=== PATIENT | male | born 1975 | race Caucasian/White ===

== ENCOUNTER 2020-02-25 11:50 | Emergency (ER) | payer OTHER ==
[2020-02-25] MEDS ORDERED: APRESOLINE 20 MG/ML INJ IV ONE ×3 (12:12→12:43)
[2020-02-25] MEDS ORDERED: Sodium Chloride 0.9% 1000 ML 1,000 ML IV SCH (12:15)
[2020-02-25] MEDS ORDERED: Ativan 2 MG/1 ML VIAL IV ONE (12:17)
[2020-02-25] MEDS ORDERED: APRESOLINE 20 MG/ML INJ ONE (12:20)
[2020-02-25] MEDS ORDERED: Sodium Chloride 0.9% 1000 ML 1,000 ML ONE (12:21)
[2020-02-25] MEDS ORDERED: Ativan 2 MG/1 ML VIAL ONE (12:24)
--- NOTE | 2020-02-25 12:30 | ERPHSYRPT ---
- History of Present Illness Time Seen by Provider: 02/25/20 12:10 Source: patient Exam Limitations: no limitations Patient Subjective Stated Complaint: Headache Triage Nursing Assessment: Patient ambulated back to ED and transferred to bed per self. Patient A+O X3. Patient's skin flushed, warm and dry. Patient complains of left sided headache for one week constant throbbing with intermittent sharp pain 2/10. Patient complains of blurred vision out of his left eye. Patient's pupils PERRL. Patient was seen at [facility] and was told to go to ED for his symptoms. Patient's blood pressure at clinic was 240/120, 220/120, 200/120. Patient states he was tested for COVID last Sunday and got negative results. Physician History: This is a 44-year-old white male with no medical history, no medications and no known drug allergies and presents with approximately 1 week history of left- sided headache and intermittent blurred vision on the left side. Patient was seen at an outpatient clinic. Patient blood pressure was very high and patient was sent to the emergency department for evaluation and management. The patient denies chest pain he denies shortness of breath. He has no flulike symptoms. Patient arrives to the emergency department with a systolic blood pressure of over 225. Patient is extremely anxious. Timing/Duration: week(s) (1) Severity: moderate Associated Symptoms: headaches, other (Left eye blurred vision intermittent) Allergies/Adverse Reactions: No Known Drug Allergies Allergy (Unverified 02/25/20 12:01) Hx Influenza Vaccination/Date Given: No Hx Pneumococcal Vaccination/Date Given: No Immunizations Up to Date: Yes Travel Risk - International Travel Have you traveled outside of the country in past 3 weeks: No - Coronavirus Screening Symptoms: Headaches/Body Aches/Fatigue Close contact with a COVID-19 positive Pt in past 14-21 Days: No - Review of Systems Constitutional: No Symptoms Eyes: Vision Changes (Left eye intermittent for 1 week) Ears, Nose, & Throat: No Symptoms Respiratory: No Symptoms Cardiac: No Symptoms Abdominal/Gastrointestinal: No Symptoms Genitourinary Symptoms: No Symptoms Musculoskeletal: No Symptoms Skin: No Symptoms Neurological: No Symptoms Psychological: No Symptoms Endocrine: No Symptoms Hematologic/Lymphatic: No Symptoms Immunological/Allergic: No Symptoms All Other Systems: Reviewed and Negative - Past Medical History Pertinent Past Medical History: No Neurological History: No Pertinent History ENT History: No Pertinent History Cardiac History: No Pertinent History Respiratory History: No Pertinent History Endocrine Medical History: No Pertinent History Musculoskeletal History: No Pertinent History GI Medical History: No Pertinent History History: No Pertinent History Psycho-Social History: No Pertinent History Male Reproductive Disorders: No Pertinent History - Past Surgical History Past Surgical History: Yes Neuro Surgical History: No Pertinent History Cardiac: No Pertinent History Respiratory: No Pertinent History Gastrointestinal: Hernia Repair Genitourinary: No Pertinent History Musculoskeletal: No Pertinent History, Orthopedic Surgery Male Surgical History: No Pertinent History Other Surgical History: Hernia repair at 13 years old. Left hand sugery - Social History Smoking Status: Never smoker Exposure to second hand smoke: No Drug Use: none Patient Lives Alone: No - Nursing Vital Signs Nursing Vital Signs: Initial Vital Signs Temperature 99.1 F 02/25/20 12:02 Pulse Rate 103 H 02/25/20 12:02 Respiratory Rate 20 02/25/20 12:02 Blood Pressure 222/131 02/25/20 12:02 O2 Sat by Pulse Oximetry 97 02/25/20 12:02 Pain Scale Pain Intensity 0 - Physical Exam General Appearance: mild distress, alert, anxiety Eye Exam: PERRL/EOMI, eyes nml inspection Ears, Nose, Throat Exam: normal ENT inspection, moist mucous membranes Neck Exam: normal inspection, non-tender, supple, full range of motion Respiratory Exam: normal breath sounds, lungs clear, airway intact, No chest tenderness, No respiratory distress Cardiovascular Exam: regular rate/rhythm, normal heart sounds, normal peripheral pulses Gastrointestinal/Abdomen Exam: soft, normal bowel sounds, No tenderness Rectal Exam: not done Back Exam: normal inspection, normal range of motion, No CVA tenderness, No vertebral tenderness Extremity Exam: normal inspection, normal range of motion, pelvis stable Neurologic Exam: alert, oriented x 3, cooperative, document processing specialist II-XII nml as tested, nor mal mood/affect, nml cerebellar function, nml station & gait, sensation nml Skin Exam: normal color, warm, dry Lymphatic Exam: No adenopathy SpO2 Interpretation: normal SpO2: 95 O2 Delivery: Room Air - Course Nursing assessment & vital signs reviewed: Yes EKG Interpreted by Me: RATE (97), Sinus Rhythm, NORMAL AXIS, NORMAL INTERVALS, NORMAL QRS, Other (No comparison EKG. No acute ischemic changes on this EKG) Ordered Tests: Active Orders 24 hr Category Date Time Status Mailing Machine Operator STAT Care 02/25/20 12:11 Active Clean Catch Urine Specimen STAT Care 02/25/20 12:11 Active EKG-ER Only STAT Care 02/25/20 12:11 Active IV Insertion STAT Care 02/25/20 12:11 Active Pulse Oximetry (ED) STAT Care 02/25/20 12:11 Active HEAD WITHOUT CONTRAST [CT] Stat Exams 02/25/20 12:14 Completed CBC W DIFF Stat Lab 02/25/20 12:11 Completed CMP Stat Lab 02/25/20 12:11 Completed CULTURE,URINE Stat Lab 02/25/20 12:00 Received MAGNESIUM Stat Lab 02/25/20 12:11 Completed TROPONIN Q3H Lab 02/25/20 12:30 Completed TROPONIN Q3H Lab 02/25/20 15:30 Ordered TROPONIN Q3H Lab 02/25/20 18:30 Ordered TROPONIN Q3H Lab 02/25/20 21:30 Ordered TROPONIN Q3H Lab 02/26/20 00:30 Ordered UA W/RFX UR CULTURE Stat Lab 02/25/20 12:00 Completed Urine Triage Profile Stat Lab 02/25/20 12:15 Completed Medication Summary Generic Name Dose Route Start Last Admin Trade Name Freq PRN Reason Stop Dose Admin Sodium Chloride 1,000 mls @ 50 mls/hr 02/25/20 12:15 02/25/20 12:28 Sodium Chloride 0.9% 1000 Ml IV 03/26/20 12:14 50 mls/hr .Q20H YANIRA Administration Discontinued Medications Generic Name Dose Route Start Last Admin Trade Name Freq PRN Reason Stop Dose Admin Hydralazine HCl 20 mg 02/25/20 12:12 02/25/20 12:38 Apresoline 20 Mg/Ml Inj IV 02/25/20 12:13 Not Given STAT ONE Hydralazine HCl 10 mg 02/25/20 12:17 02/25/20 12:28 Apresoline 20 Mg/Ml Inj IV 02/25/20 12:18 10 mg STAT ONE Administration Hydralazine HCl Confirm 02/25/20 12:20 Apresoline 20 Mg/Ml Inj Administered 02/25/20 12:21 Dose 20 mg .ROUTE .STK-MED ONE Hydralazine HCl 10 mg 02/25/20 12:43 02/25/20 12:46 Apresoline 20 Mg/Ml Inj IV 02/25/20 12:44 10 mg STAT ONE Administration Lorazepam 1 mg 02/25/20 12:17 02/25/20 12:27 Ativan 2 Mg/1 Ml Vial IV 02/25/20 12:18 1 mg STAT ONE Administration Lorazepam Confirm 02/25/20 12:24 Ativan 2 Mg/1 Ml Vial Administered 02/25/20 12:25 Dose 2 mg .ROUTE .STK-MED ONE Metoprolol Tartrate 5 mg 02/25/20 13:16 02/25/20 13:28 Lopressor 5 Mg/5 Ml Injection IV 02/25/20 13:17 5 mg STAT ONE Administration Metoprolol Tartrate Confirm 02/25/20 13:27 Lopressor 5 Mg/5 Ml Injection Administered 02/25/20 13:28 Dose 5 mg IV .STK-MED ONE Metoprolol Tartrate 5 mg 02/25/20 13:51 Lopressor 5 Mg/5 Ml Injection IV 02/25/20 13:52 STAT ONE Lab/Rad Data: Laboratory Result Diagrams 02/25/20 12:11 02/25/20 12:11 Laboratory Results 02/25/20 02/25/20 02/25/20 Range/Units 12:30 12:15 12:11 WBC (4.0-10.5) K/mm3 RBC (4.1-5.6) M/mm3 Hgb (12.5-18.0) gm/dl Hct (42-50) % MCV (78-100) fl MCH (26-32) pg MCHC (32-36) g/dl RDW (11.5-14.0) % Plt Count (150-450) K/mm3 MPV (7.5-11.0) fl Gran % (36.0-66.0) % Eos # (Auto) (0-0.5) Absolute Lymphs (auto) (1.0-4.6) Absolute Monos (auto) (0.0-1.3) Lymphocytes % (24.0-44.0) % Monocytes % (0.0-12.0) % Eosinophils % (0.00-5.0) % Basophils % (0.0-0.4) % Absolute Granulocytes (1.4-6.9) Basophils # (0-0.4) Sodium 137 (137-145) mmol/L Potassium 4.8 (3.5-5.1) mmol/L Chloride 104 (98-107) mmol/L Carbon Dioxide 24 (22-30) mmol/L Anion Gap 14.0 (5-15) MEQ/L BUN 13 (9-20) mg/dL Creatinine 1.01 (0.66-1.25) mg/dL Estimated GFR > 60.0 ML/MIN Glucose 120 H (74-106) mg/dL Calcium 9.8 (8.4-10.2) mg/dL Magnesium 2.2 (1.6-2.3) mg/dL Total Bilirubin 1.30 (0.2-1.3) mg/dL AST 53 (17-59) U/L ALT 66 H (0-50) U/L Alkaline Phosphatase 104 (38-126) U/L Troponin I < 0.012 (0.000-0.034) ng/mL Serum Total Protein 8.6 H (6.3-8.2) g/dL Albumin 5.1 H (3.5-5.0) g/dL Urine Color (YELLOW) Urine Appearance (CLEAR) Urine pH (5-6) Ur Specific [place] (1.005-1.025) Urine Protein (Negative) Urine Ketones (NEGATIVE) Urine Blood (0-5) Macho/ul Urine Nitrite (NEGATIVE) Urine Bilirubin (NEGATIVE) Urine Urobilinogen (0-1) mg/dL Ur Leukocyte Esterase (NEGATIVE) Urine WBC (Auto) (0-5) /HPF Urine RBC (Auto) (0-2) /HPF U Hyaline Cast (Auto) (0-2) /LPF U Epithel Cells (Auto) (FEW) /HPF Urine Bacteria (Auto) (NEGATIVE) /HPF Granular Casts (Auto) (NEGATIVE) /LPF Urine Mucus (Auto) (NEGATIVE) /HPF Urine Sperm (Auto) (NEGATIVE) /HPF Urine Culture Reflexed (NO) Urine Glucose (NEGATIVE) mg/dL Urine Opiates Level NEGATIVE (NEGATIVE) Ur Methadone NEGATIVE (NEGATIVE) Urine Barbiturates NEGATIVE (NEGATIVE) Ur Phencyclidine (PCP) NEGATIVE (NEGATIVE) Urine Amphetamine NEGATIVE (NEGATIVE) U Benzodiazepine Level NEGATIVE (NEGATIVE) Urine Cocaine NEGATIVE (NEGATIVE) Urine Marijuana (THC) NEGATIVE (NEGATIVE) 02/25/20 02/25/20 Range/Units 12:11 12:00 WBC 8.8 (4.0-10.5) K/mm3 RBC 4.84 (4.1-5.6) M/mm3 Hgb 16.5 (12.5-18.0) gm/dl Hct 47.9 (42-50) % MCV 99.0 (78-100) fl MCH 34.1 H (26-32) pg MCHC 34.4 (32-36) g/dl RDW 12.1 (11.5-14.0) % Plt Count 305 (150-450) K/mm3 MPV 9.0 (7.5-11.0) fl Gran % 79.0 H (36.0-66.0) % Eos # (Auto) 0.07 (0-0.5) Absolute Lymphs (auto) 1.21 (1.0-4.6) Absolute Monos (auto) 0.54 (0.0-1.3) Lymphocytes % 13.8 L (24.0-44.0) % Monocytes % 6.2 (0.0-12.0) % Eosinophils % 0.8 (0.00-5.0) % Basophils % 0.2 (0.0-0.4) % Absolute Granulocytes 6.92 H (1.4-6.9) Basophils # 0.02 (0-0.4) Sodium (137-145) mmol/L Potassium (3.5-5.1) mmol/L Chloride (98-107) mmol/L Carbon Dioxide (22-30) mmol/L Anion Gap (5-15) MEQ/L BUN (9-20) mg/dL Creatinine (0.66-1.25) mg/dL Estimated GFR ML/MIN Glucose (74-106) mg/dL Calcium (8.4-10.2) mg/dL Magnesium (1.6-2.3) mg/dL Total Bilirubin (0.2-1.3) mg/dL AST (17-59) U/L ALT (0-50) U/L Alkaline Phosphatase (38-126) U/L Troponin I (0.000-0.034) ng/mL Serum Total Protein (6.3-8.2) g/dL Albumin (3.5-5.0) g/dL Urine Color YELLOW (YELLOW) Urine Appearance CLEAR (CLEAR) Urine pH 6.0 (5-6) Ur Specific [place] 1.012 (1.005-1.025) Urine Protein 30 (Negative) Urine Ketones NEGATIVE (NEGATIVE) Urine Blood SMALL (0-5) [place]ul Urine Nitrite NEGATIVE (NEGATIVE) Urine Bilirubin NEGATIVE (NEGATIVE) Urine Urobilinogen NEGATIVE (0-1) mg/dL Ur Leukocyte Esterase NEGATIVE (NEGATIVE) Urine WBC (Auto) 0-2 (0-5) /HPF Urine RBC (Auto) 3-5 (0-2) /HPF U Hyaline Cast (Auto) 0-2 (0-2) /LPF U Epithel Cells (Auto) NONE (FEW) /HPF Urine Bacteria (Auto) FEW (NEGATIVE) /HPF Granular Casts (Auto) 5-10 (NEGATIVE) /LPF Urine Mucus (Auto) SLIGHT (NEGATIVE) /HPF Urine Sperm (Auto) PRESENT (NEGATIVE) /HPF Urine Culture Reflexed YES (NO) Urine Glucose NEGATIVE (NEGATIVE) mg/dL Urine Opiates Level (NEGATIVE) Ur Methadone (NEGATIVE) Urine Barbiturates (NEGATIVE) Ur Phencyclidine (PCP) (NEGATIVE) Urine Amphetamine (NEGATIVE) U Benzodiazepine Level (NEGATIVE) Urine Cocaine (NEGATIVE) Urine Marijuana (THC) (NEGATIVE) - Progress Progress: improved, re-examined Progress Note: 02/25/20 13:53 CAT scan of the head reveals no acute intracranial abnormality. Medical decision making: This patient has hypertensive crisis. His symptoms of headache have resolved. His most recent systolic blood pressure is 182. I recommended that the patient be admitted to the hospital or transferred to a facility. Patient refuses to be admitted or transferred for further management. Patient states he is feeling better and wants to go home. I reviewed the benefits of being admitted into a facility (this 1 or transfer to another facility) and the risk of going home without monitoring over the next 24 to 48 hours including worsening symptoms, stroke and . Patient understands the above and desires to go home. He will sign an AMA form. I will discharge him with a prescription of metoprolol. Counseled pt/family regarding: lab results, diagnosis, need for follow-up, rad results - Departure Departure Disposition: AMA Clinical Impression: Hypertensive crisis Condition: Fair Critical Care Time: Yes Critical Care Time(excluding separately billable procedures): Critical 30-74 mins Referrals: KERRIE ARSHAD [ACTIVE STAFF] - Additional Instructions: Call your primary care doctor today to make arrangements for further management. Return to the emergency department if your symptoms worsen. Go to your pharmacy and fill your prescription immediately. While at the pharmacy purchase a blood pressure monitoring cuff. Keep a log of your blood pressure 3 times a day (morning noon and night). Take this log to your primary care doctor appo intment. Prescriptions: Metoprolol Tartrate 50 mg [Lopressor 50 MG] 50 mg PO BID #20 tablet
[2020-02-25 12:35] LABS: Absolute Neutrophil Ct (ANC) 6.92 (1.4-6.9); BASOPHIL % 0.2 % (0.0-0.4); Basophil (Absolute #) 0.02 (0-0.4); Eosinophil % 0.8 % (0.00-5.0); Eosinophil (Absolute #) 0.07 (0-0.5); Hematocrit 47.9 % (42-50); Hemoglobin 16.5 gm/dl (12.5-18.0); Lymphocyte (Absolute #) 1.21 (1.0-4.6); Lymphocytes % 13.8 % (24.0-44.0); Mean Corpuscular Hemoglobin 34.1 pg (26-32); Mean Corpuscular Hgb Concent. 34.4 g/dl (32-36); Monocyte (Absolute #) 0.54 (0.0-1.3); Monocytes % 6.2 % (0.0-12.0); Platelet Count 305 K/mm3 (150-450); Red Blood Count 4.84 M/mm3 (4.1-5.6); Red Cell Distribution Width 12.1 % (11.5-14.0); White Blood Count 8.8 K/mm3 (4.0-10.5)
[2020-02-25 12:48] LABS: ALBUMIN 5.1 g/dL (3.5-5.0); ALKALINE PHOSPHATASE 104 U/L (38-126); BLOOD UREA NITROGEN 13 mg/dL (9-20); CHLORIDE 104 mmol/L (98-107); Calcium 9.8 mg/dL (8.4-10.2); Carbon Dioxide 24 mmol/L (22-30); Creatinine 1 1.01 mg/dL (0.66-1.25); Glucose 120 mg/dL (74-106); MAGNESIUM 2.2 mg/dL (1.6-2.3); Potassium 4.8 mmol/L (3.5-5.1); SGOT/AST 53 U/L (17-59); SGPT/ALT 66 U/L (0-50); SODIUM 137 mmol/L (137-145); Total Protein 8.6 g/dL (6.3-8.2)
[2020-02-25 12:58] LABS: Appearance CLEAR (CLEAR); Bacteria FEW /HPF (NEGATIVE); Bilirubin NEGATIVE (NEGATIVE); Blood SMALL Ery/ul (0-5); Glucose NEGATIVE (NEGATIVE); Hyaline Casts 0-2 /LPF (0-2); Ketones NEGATIVE (NEGATIVE); Leukocyte Esterase NEGATIVE (NEGATIVE); Mucus SLIGHT /HPF (NEGATIVE); Nitrite NEGATIVE (NEGATIVE); Protein,Urine Dip 30 (Negative); Specific Gravity 1.012 (1.005-1.025); Sperm PRESENT /HPF (NEGATIVE); Urobilinogen NEGATIVE mg/dL (0-1); WBC 0-2 /HPF (0-5)
[2020-02-25 13:07] LABS: Amphetamine,Urine NEGATIVE (NEGATIVE); Barbiturate,Urine NEGATIVE (NEGATIVE); Benzodiazepine,Urine NEGATIVE (NEGATIVE); Cocaine,Urine NEGATIVE (NEGATIVE); Methadone,Urine NEGATIVE (NEGATIVE); Opiate,Urine NEGATIVE (NEGATIVE); PCP,Urine NEGATIVE (NEGATIVE); THC,Urine NEGATIVE (NEGATIVE)
[2020-02-25] MEDS ORDERED: LOPRESSOR 5 MG/5 ML INJECTION IV ONE ×4 (13:16→13:59)
--- NOTE | 2020-02-25 13:20 | XRAY ---
Indication: Headache 1 week. High blood pressure. Multiple contiguous axial images obtained through the head without contrast. Comparison: None Normal appearing brain parenchyma, ventricles, and bony calvarium. Visualized paranasal sinuses and mastoid air cells are clear. Impression: Normal CT head without contrast exam.
[2020-02-25 14:22] VITALS: BP 196/102; PULSE 96; O2SAT 99
== END 2020-02-25 14:30 | disposition left against medical advice (07) ==
LOC: ED 11:50
DX: I16.9 Hypertensive crisis, unspecified (principal)
CPT/HCPCS: 36000; 36415; 70450; 80053; 80307; 81001; 83735; 84484; 85025; 87086; 93005; 93041; 94760; 96360; 96374; 96375; 96376; 99285; 99291; J0360; J2060

== ENCOUNTER 2020-05-08 22:22 | Emergency (ER) | payer OTHER ==
[2020-05-08 22:52] VITALS: O2SAT 95
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
[2020-05-08 23:09] VITALS: BP 140/86; PULSE 76
== END 2020-05-08 23:00 | disposition home or self-care (01) ==
LOC: ED 22:22
DX: Z04.1 Encounter for examination and observation following transport accident (principal); F10.129 Alcohol abuse with intoxication, unspecified; Z02.89 Encounter for other administrative examinations
CPT/HCPCS: 36415; 80307; 99284; G0480

== ENCOUNTER 2024-10-27 17:54 | Emergency (ER) | payer OTHER ==
[2024-10-27 18:04] VITALS: TEMP 97.8
--- NOTE | 2024-10-27 18:12 | ERPHSYRPT ---
- History of Present Illness Time Seen by Provider: 10/27/24 18:11 Source: patient, family Exam Limitations: no limitations Patient Subjective Stated Complaint: Pt states "I have sciatica problems and I got a shot by Dr. Hoyos on and It was better and this morning I started to have back pain and I think I twisted the wrong way and had to slide down the wall to get off my feet." Triage Nursing Assessment: Pt presented alert and oriented X 3, skin wpd. Pt ambulates with a slow gait, able to speak in full sentences. PT hunched over and grunting. Physician History: This is a 49-year-old white male patient who last week approximately , he began having right low back pain which radiated sharply down his right posterior thigh behind his knee. The pain was most intense the right of midline of his lumbar level paraspinous muscles. He did not have any fall or injury. He does do a lot of heavy lifting twisting at work. Patient received a shot of steroids on prior to this evaluation and they appear to be helping. However, he was back at work today and was lifting twisting turning and the feels as though he may have aggravated the same area. Patient had been given a prescription of naproxen only for outpatient management of his pain. Again, patient did not have any fall or traumatic injury. He has no urinary or bowel incontinence. He denies constipation. Timing/Duration: day(s) (4) Method of Injury: bending, lifting, twisted Quality: sharp, stabbing Back Pain Location: paraspinous muscles (Right side) Back Pain Radiation: buttocks (Right side), upper legs (Right side posteriorly) Severity of Pain-Max: moderate Severity of Pain-Current: moderate Modifying Factors: Improves With: movement (Worsens) Associated Symptoms: lower back pain, muscle spasms (Right paraspinous muscle), No urinary incontinence, No loss of bowel control, No constipation, No numbness in legs/feet, No sensory/motor loss, No tingling in legs/feet Previous symptoms: same symptoms as today ( region at the lumbar level), recently seen, recently treated Allergies/Adverse Reactions: No Known Drug Allergies Allergy (Verified 05/08/20 22:24) Home Medications: Naproxen 500 mg [Naprosyn 500 MG] 500 mg PO DAILY 10/27/24 [History] Hx Tetanus, Diphtheria Vaccination/Date Given: Yes Hx Influenza Vaccination/Date Given: No Hx Pneumococcal Vaccination/Date Given: No Immunizations Up to Date: No Travel Risk - International Travel Have you traveled outside of the country in past 3 weeks: No - Emerging Infectious Disease Are you exhibiting symptoms associated with any current EIDs: No - Review of Systems Constitutional: No Symptoms Eyes: No Symptoms Ears, Nose, & Throat: No Symptoms Respiratory: No Symptoms Cardiac: No Symptoms Abdominal/Gastrointestinal: No Symptoms Genitourinary Symptoms: No Symptoms Musculoskeletal: Back Pain, No Fall, No Injury Skin: No Symptoms Neurological: No Symptoms Psychological: No Symptoms Endocrine: No Symptoms Hematologic/Lymphatic: No Symptoms Immunological/Allergic: No Symptoms All Other Systems: Reviewed and Negative - Past Medical History Pertinent Past Medical History: Yes (HTN) Neurological History: No Pertinent History ENT History: No Pertinent History Cardiac History: No Pertinent History Respiratory History: No Pertinent History Endocrine Medical History: No Pertinent History Musculoskeletal History: No Pertinent History GI Medical History: No Pertinent History History: No Pertinent History Psycho-Social History: No Pertinent History Male Reproductive Disorders: No Pertinent History - Past Surgical History Past Surgical History: Yes Neuro Surgical History: No Pertinent History Cardiac: No Pertinent History Respiratory: No Pertinent History Gastrointestinal: Hernia Repair Genitourinary: No Pertinent History Musculoskeletal: No Pertinent History, Orthopedic Surgery Male Surgical History: No Pertinent History Other Surgical History: Hernia repair at 13 years old. Left hand sugery Significant Family History: other (unreliable) - Social History Smoking Status: Never smoker Exposure to second hand smoke: No Drug Use: none - Social Determinants of Health Will the patient participate in the screening: Declined to provide - Nursing Vital Signs Nursing Vital Signs: Initial Vital Signs Temperature 97.8 F 10/27/24 17:58 Pulse Rate 78 10/27/24 17:58 Respiratory Rate 22 10/27/24 17:58 Blood Pressure 180/96 10/27/24 17:58 O2 Sat by Pulse Oximetry 98 10/27/24 17:58 Pain Scale Pain Intensity [Right Lower 8 Back] Pain Intensity 8 - Physical Exam General Appearance: mild distress, alert, anxiety Eye Exam: PERRL/EOMI, eyes nml inspection Ears, Nose, Throat Exam: normal ENT inspection, moist mucous membranes Neck Exam: normal inspection, non-tender, supple, full range of motion Respiratory Exam: airway intact, No chest tenderness, No respiratory distress Gastrointestinal Exam: No tenderness Rectal Exam: not done Back Exam: normal inspection, decreased range of motion, muscle spasm (To palpation right paraspinous muscle lumbar level), other (There is definitely no vertebral or point tenderness to palpation. 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, sensation nml, other (Patient is having pain in the right paraspinous muscle lumbar level when up and ambulating) Skin Exam: normal color, warm, dry Lymphatic Exam: No adenopathy SpO2 Interpretation: normal SpO2: 98 O2 Delivery: Room Air - Course Nursing assessment & vital signs reviewed: Yes Ordered Tests: Medication Summary Generic Name Dose Route Start Last Admin Trade Name Freq PRN Reason Stop Dose Admin Hydromorphone HCl 0.5 mg 10/27/24 18:16 Hydromorphone 1 Mg/1ml Inj IM 10/27/24 18:17 STAT ONE - Progress Progress: improved, pain not gone completely Progress Note: 10/27/24 18:23 My medical decision making and the assignment of low complexity is based on review of the patient's past medical history, review the patient's medication list, reviewed patient drug allergy list, history present illness and physical findings on examination. The workup recommended to the patient included either plain x-ray of the lumbar spine or CT scan of the lumbar spine. The patient is refusing those radiographic studies. Differential diagnosis includes but is not limited to paraspinous muscle spasms, lumbar spine fracture/subluxation, sciatica Counseled pt/family regarding: diagnosis, need for follow-up Medical Desision Making - Diagnostic Testing Diagnostic test were ordered, analyzed, and reviewed by me: No - Risk of complications The pt has a mod risk of morbidity or mortality based on: Need for prescription drug management - Departure Departure Disposition: Home Clinical Impression: Sciatica Condition: Stable Critical Care Time: No Additional Instructions: Stop the naproxen. Take the steroid and muscle relaxer as prescribed. Call your primary care provider tomorrow, 10/28/2024, to make arrangements for a follow-up appointment for further evaluation management. Prescriptions: Prednisone 10 mg [Deltasone 10 mg] 10 mg PO TID #12 tablet Orphenadrine Citrate 100 mg [Norflex 100 MG Tablet] 100 mg PO BID #10 tab
[2024-10-27] MEDS ORDERED: Sterile H2O 10 ml IJ ONE (18:21)
[2024-10-27] MEDS ORDERED: ZOFRAN ODT 4 MG ONE (18:21)
[2024-10-27] MEDS ORDERED: Norflex 60 MG/2 ML ONE (18:22)
[2024-10-27] MEDS ORDERED: Hydromorphone 1 mg/ml Injection ONE (18:22)
[2024-10-27] MEDS ORDERED: solu-MEDROL ONE (18:23)
[2024-10-27] MEDS: ZOFRAN ODT 4 MG PO ONE (18:27)
[2024-10-27] MEDS: Norflex 60 MG/2 ML IM ONE (18:29)
[2024-10-27] MEDS: solu-MEDROL 125 MG, Sterile H2O 10 ml 2 ML IM ONE (18:31)
[2024-10-27] MEDS: Hydromorphone 1 mg/ml Injection IM ONE (18:33)
[2024-10-27 19:03] VITALS: RESP 18
[2024-10-27] MEDS ORDERED: PERCOCET TABLET 5/325MG ONE (19:09)
[2024-10-27] MEDS: PERCOCET TABLET 5/325MG PO STA (19:22)
[2024-10-27 19:35] VITALS: BP 140/96; PULSE 76; O2SAT 100
== END 2024-10-27 19:25 | disposition home or self-care (01) ==
LOC: ED 17:54
DX: M54.31 Sciatica, right side (principal); Z79.52 Long term (current) use of systemic steroids; Z79.899 Other long term (current) drug therapy
CPT/HCPCS: 96372; 99283; 99284; J1171; J2360; J2919; Q0162; A9270-GY